=== PATIENT | female | born 1940 | race Caucasian/White ===

== ENCOUNTER → 2021-12-20 | Outpatient (CLI) | payer MEDICARE ==
--- NOTE | 2021-12-20 14:59 | Diagnostic Imaging Report ---
PROCEDURE: CT abdomen and pelvis without contrast. TECHNIQUE: Multiple contiguous axial images were obtained through the abdomen and pelvis without the use of intravenous contrast. Auto Exposure Controls were utilized during the CT exam to meet ALARA standards for radiation dose reduction. INDICATION: Left-sided pelvic pain posteriorly. COMPARISON: No relevant comparison. FINDINGS: There are degenerative changes to the bony pelvis but no acute or chronic pelvic fracture. There are degenerative changes throughout the lumbar spine but no acute spinal abnormality. There are right-sided perineural sacral foraminal cysts. The lung bases are nonacute. A low-density nodule in left renal midpole cortex is incompletely evaluated by the absence of contrast very well may be cystic but nonemergent sonographic confirmation recommended to exclude a solid mass. This lesion in question measures 2 cm. There are two stones of 2 to 3 mm, nonobstructing within left renal lower pole calyces. The right kidney is without calculus. There is no hydroureteronephrosis. No opaque ureteral or bladder stone. Uterine calcifications, likely old burned out fibroids, present. There is no adnexal lesion. There is normal appendix with sigmoid diverticulosis but no features of acute diverticulitis. Liver, spleen, adrenals, pancreas, and gallbladder are all nonacute. There are aortic atherosclerotic vascular calcifications, nonaneurysmal. IMPRESSION: 1. Nonobstructing left renal calculi. Indeterminate left renal nodule. Sonographic correlation recommended on a nonemergent basis. 2. Noninflamed diverticulosis and a normal appendix. 3. 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 Dictated by: Dictated on workstation # [id number]
== END ==
LOC: RAD 12:45
PROVIDERS: ATTEND Urology
DX: N20.0 Calculus of kidney (principal); M47.818 Spondylosis without myelopathy or radiculopathy, sacral and sacrococcygeal region
CPT/HCPCS: 74176

== ENCOUNTER → 2022-01-03 | Outpatient (CLI) | payer MEDICARE ==
--- NOTE | 2022-01-03 13:33 | Diagnostic Imaging Report ---
INDICATION: LEFT RENAL MASS TECHNIQUE: Multiple real-time grayscale sonographic images were obtained of the kidneys. CORRELATION: CT 12/20/2021 FINDINGS: RIGHT KIDNEY: 11.7 x 4.3 x 4.8 cm. Possible mild prominence of the right renal pelvis may reflect very mild hydronephrosis. Renal parenchyma otherwise unremarkable. LEFT KIDNEY: 9.7 x 5.5 x 5.0 cm. Hypoechoic mass left kidney favors probable cyst 3.8 x 1.0 x 1.9 cm. No hydronephrosis. URINARY BLADDER: The partially distended bladder has an unremarkable appearance. Bilateral ureteral jets are present. IMPRESSION: 1. Approximately 3.8 cm cystic mass left kidney. 2. Very mild prominence of the right renal collecting system. Dictated by: Dictated on workstation # [id number]
== END ==
LOC: RAD 11:53
PROVIDERS: ATTEND Urology
DX: N28.1 Cyst of kidney, acquired (principal)
CPT/HCPCS: 76770